=== PATIENT | male | born 1995 | race Caucasian/White ===

== ENCOUNTER 2019-01-08 17:08 | Emergency (ER) | payer SELFPAY ==
[~2019-01-08] VITALS: Ht 182.9 cm; Wt 103.0 kg
[2019-01-08] MEDS ORDERED: PENICILLN VK500 MG PO (17:39)
[2019-01-08] MEDS ORDERED: TRAMADOL HYDROC50 MG PO (17:39)
[2019-01-08 18:00] VITALS: BP 123/81
== END 2019-01-08 18:00 | disposition home or self-care (01) | DRG 159 ==
LOC: ED 17:08
DX: K04.7 Periapical abscess without sinus (principal); K02.9 Dental caries, unspecified; S02.5XXA Fracture of tooth (traumatic), initial encounter for closed fracture; V89.2XXA Person injured in unspecified motor-vehicle accident, traffic, initial encounter

== ENCOUNTER 2019-02-25 20:33 | Emergency (ER) | payer OTHER ==
[~2019-02-25] VITALS: Ht 182.9 cm; Wt 106.8 kg
[~2019-02-25 20:33] MED LIST: PENICILLN VK500 MG PO; TRAMADOL HYDROC50 MG PO
[2019-02-25] MEDS ORDERED: AMOXICILLIN500 MG PO (22:02)
[2019-02-25 22:56] VITALS: BP 118/70
== END 2019-02-25 22:56 | disposition home or self-care (01) | DRG 914 ==
LOC: ED 20:33
PROC: 0JJV0ZZ Inspection of Upper Extremity Subcutaneous Tissue and Fascia, Open Approach (ICD-10-PCS; principal; 2019-02-25)
DX: S51.842A Puncture wound with foreign body of left forearm, initial encounter (principal); F17.290 Nicotine dependence, other tobacco product, uncomplicated; W22.8XXA Striking against or struck by other objects, initial encounter; Y93.89 Activity, other specified; Y92.89 Other specified places as the place of occurrence of the external cause; Y99.0 Civilian activity done for income or pay